=== PATIENT | female | born 1950 | race Caucasian/White ===

== ENCOUNTER 2017-04-12 07:32 | Emergency (ER) | payer OTHER ==
[~2017-04-12] VITALS: Ht 160 cm; Wt 77.1 kg
--- NOTE | 2017-04-12 07:52 | ED GENERAL ADULT ---
History of Present Illness General Chief Complaint: General Adult Stated Complaint: SUDDEN ONSET WEAKNESS, +N, DIAPHORESIS Source: patient, family Exam Limitations: no limitations Vital Signs & Intake/Output Vital Signs & Intake/Output Vital Signs Date Time Temp Pulse Resp B/P B/P Pulse O2 O2 Flow FiO2 Mean Ox Delivery Rate 04/12 1020 98.0 74 20 180/90 100 Room Air 04/12 0912 97.0 70 178/86 04/12 0807 178/88 04/12 0806 179/86 04/12 0806 181/86 04/12 0805 97 04/12 0735 96.8 76 18 163/91 97 Room Air Room Air Allergies Coded Allergies: No Known Allergies (04/12/17) Reconcile Medications No Known Home Medications Triage Note: PT TO ED WITH SUDDEN ONSET OF DIZZINESS AND NAUSEA, "I ATE BREAKFAST OK THIS MORNING, I WENT UPSTAIRS TO GET WASHED UP AND I BROKE OUT IN A COLD SWEAT". + NAUSEA -V/D Triage Nurses Notes Reviewed? yes Onset: Abrupt Duration: hour(s): (1) Timing: single episode today Injury Environment: home Severity: moderate, severe No Modifying Factors: none Associated Symptoms: diaphoresis, NAUSEA, LIGHTHEADEDNESS HPI: This is a very taniya 66-year-old female without any known past medical history, does not see a primary care doctor presents to the ER for chief complaint of episode of nausea, cold sweats and feeling like she was in the past out this morning. She states she had breakfast around 5:30 O Coffee which she made at home. She then climbed up the stairs to wash her face when all of the symptoms started. She felt like vomiting but did not vomit but felt she was when pass out. No chest pain or shortness of breath. She was fatigued all day long yesterday. She states that since the of her daughter 8 months ago for breast cancer she has only been sleeping 3-4 hours tonight. Past History Travel History Traveled to [place] past 21 day No Medical History Any Pertinent Medical History? see below for history Neurological: migraine EENT: NONE Cardiovascular: NONE Respiratory: NONE Gastrointestinal: NONE Hepatic: NONE Renal: NONE Musculoskeletal: NONE Psychiatric: NONE Endocrine: NONE Blood Disorders: anemia Cancer(s): NONE OPTICAL ENGINEER/Reproductive: NONE Surgical History Surgical History: hysterectomy Psychosocial History What is your primary language Divehi Tobacco Use: Never used ETOH Use: occasional use Illicit Drug Use: denies illicit drug use Family History Comment: FATHER 80'S, - [place], [place], CVA DAUGHTER - BREAST CA (40) Hx Contributory? Yes Review of Systems Review of Systems Constitutional: Reports: diaphoresis, malaise, weakness. Denies: chills, fever. EENTM: Reports: no symptoms. Respiratory: Denies: cough, short of breath. Cardiovascular: Denies: chest pain, palpitations. GI: Reports: nausea. Denies: abdominal pain, vomiting. Genitourinary: Denies: discharge, dysuria, frequency. Musculoskeletal: Denies: back pain. Skin: Reports: no symptoms. Neurological/Psychological: Reports: depressed ( OF DAUGHTER). Hematologic/Endocrine: Denies: bruising, bleeding, polyuria, polydipsia. Immunologic/Allergic: Denies: splenectomy. All Other Systems: Reviewed and Negative Physical Exam Physical Exam General Appearance: well developed/nourished, alert, awake, mild distress Head: atraumatic, normal appearance Eyes: Bilateral: normal appearance, PERRL, EOMI. Ears, Nose, Throat: normal pharynx, normal ENT inspection, hearing grossly normal Neck: normal inspection, supple, full range of motion Respiratory: normal breath sounds, chest non-tender, quiet respiration Cardiovascular: regular rate/rhythm Peripheral Pulses: 2+ radial (R), 2+ radial (L) Gastrointestinal: non-tender Extremities: normal inspection, normal capillary refill, normal range of motion, no edema Neurologic/Psych: no motor/sensory deficits, awake, alert, oriented x 3, normal mood/affect Skin: CLAMMY Core Measures ACS in differential dx? Yes CVA/TIA Diagnosis: No Severe Sepsis Present: No Septic Shock Present: No Progress Differential Diagnoses I considered the following diagnoses in my evaluation of the patient: [ACS, EXHAUSTION, DEHYDRATION, PE, DYSRHYTHMIA, VERGITO, VAGAL EPISODE, ANXIETY] Plan of Care: Orders Procedure Date/time Status MISTAKE 04/12 753 Active Telemetry/Compressed Gas Equipment Mechanic 04/12 753 Active URINALYSIS 04/12 753 Complete THYROID STIMULATING HORMONE 04/12 753 Complete TROPONIN LEVEL 04/12 753 Complete FREE T4 04/12 753 Complete COMPREHENSIVE METABOLIC PANEL 04/12 753 Complete CBC WITHOUT DIFFERENTIAL 04/12 753 Complete EKG 04/12 0739 Active Laboratory Tests 04/12/17 1034: Urine Color STRAW, Urine Clarity CLEAR, Urine pH 7.0, Ur Specific [place] 1.015, Urine Protein NEG, Urine Ketones NEG, Urine Nitrite NEG, Urine Bilirubin NEG, Urine Urobilinogen 0.2, Ur Leukocyte Esterase TRACE H, Ur Microscopic SEDIMENT EXAMINED, Urine RBC 1-3, Urine WBC 1-3 H, Ur Epithelial Cells MOD H, Urine Bacteria RARE H, Urine Mucus FEW, Urine Hemoglobin NEG, Urine Glucose NEG 04/12/17 0800: Anion Gap 8, Estimated GFR > 60, BUN/Creatinine Ratio 33.3 H, Glucose 158 H, Calcium 9.4, Total Bilirubin 0.6, AST 19, ALT 16, Alkaline Phosphatase 63, Troponin I < 0.01, Total Protein 7.1, Albumin 4.2, Globulin 2.9, Albumin/ Globulin Ratio 1.4, TSH 4.800 H, Free T4 1.05, CBC w Diff NO MAN DIFF REQ, RBC 4.40, MCV 86.8, MCH 29.4, RDW 13.4, MPV 7.9, Gran % 67.7, Lymphocytes % 22.5, Monocytes % 6.1, Eosinophils % 3.2, Basophils % 0.5, Absolute Granulocytes 3.8, Absolute Lymphocytes 1.3, Absolute Monocytes 0.3, Absolute Eosinophils 0.2, Absolute Basophils 0, PUBS MCHC 33.8 04/12/2017 11:21:15 AM Much better after IV fluids. An laboratory around the ED without any distress, no more episodes of dizziness. Urinalysis is negative for infection. Patient encouraged to follow up with a primary care doctor in the office. Patient admitted to being very exhausted secondary to only sleeping approximately 3 hours per night since the of her 40-year-old daughter 8 months ago. She is exhausted which may be playing a role in her current symptoms. (BRANDY ARORA,ERICKSON) Diagnostic Imaging: Viewed by Me: Radiology Read. Discussed w/RAD: Radiology Read. CXR Impression: PATIENT: FERMIN RODRIGUEZ PRESENT AGE: 66 PATIENT ACCOUNT NO: [id number] : 50 LOCATION: [facility] ORDERING PHYSICIAN: ERICKSON NAVA MD SERVICE DATE: 04/12/17 EXAM TYPE: RAD - XRY-CHEST XRAY , PA AND LATERAL EXAMINATION: XR CHEST CLINICAL INFORMATION: Syncope diaphoresis COMPARISON: None TECHNIQUE: 2 views of the chest were obtained. FINDINGS: Heart size is top normal. Pulmonary vascularity is within normal limits. The aorta is mildly tortuous. The lungs are normally expanded and clear. There is no pulmonary edema. There is no focal consolidation or atelectasis. There is no pleural effusion or pneumothorax. There is hypertrophic spurring in the dorsal spine. IMPRESSION: Normally expanded and clear lungs with no focal findings. DICTATED BY: SETH HERNDON MD DATE/TIME DICTATED:04/12/17850 POINT OF SALE ASSOCIATE:APOLINAR DATE/TIME TRANSCRIBED:04/12/17850 CONFIDENTIAL, DO NOT COPY WITHOUT APPROPRIATE AUTHORIZATION. <Electronically signed in Other Vendor System> SIGNED BY: SETH HERNDON MD 04/12/17 0857 Initial ED EKG: normal axis, none, normal intervals Departure Departure Time of Disposition: 1102 Disposition: HOME OR SELF CARE Condition: Stable Clinical Impression Primary Impression: Near syncope Referrals: JULIET ARORA,SOILA PEREZ MD,STU Nicole Additional Instructions: FOLLOW UP WITH YOUR HUSBAN'D DOCTOR OR WITH THE ONE LISTED Departure Forms: Customer Survey General Discharge Information Prescriptions: Current Visit Scripts No Known Home Medications Critical Care Note Critical Care Note Critical Care Time: non-applicable
[2017-04-12 08:11] LABS: ABSOLUTE BASOPHIL COUNT 0 /CUMM (0.0-0.2); ABSOLUTE EOSINOPHIL COUNT 0.2 /CUMM (0.0-0.7); ABSOLUTE GRANULOCYTE CT 3.8 /CUMM (1.4-6.5); ABSOLUTE LYMPH COUNT 1.3 /CUMM (1.2-3.4); ABSOLUTE MONOCYTE COUNT 0.3 /CUMM (0.10-0.60); BASOPHIL % 0.5 % (0.0-2.0); EOSINOPHIL % 3.2 % (0-5); GRANULOCYTE % 67.7 % (42.2-75.2); HEMATOCRIT 38.2 % (37-47); MEAN CORPUSCULAR HGB 29.4 PG (27.0-31.0); MEAN CORPUSCULAR HGB CONC 33.8 G/DL (33.0-37.0); MEAN CORPUSCULAR VOLUME 86.8 FL (81.0-99.0); MEAN PLATELET VOLUME 7.9 FL (7.4-10.4); PLATELET COUNT 284 /CUMM (130-400); RBC DISTRIBUTION WIDTH 13.4 % (11.5-14.5); WHITE BLOOD CELL COUNT 5.6 /CUMM (4.8-10.8)
--- NOTE | 2017-04-12 08:57 | RADIOLOGY REPORT ---
EXAMINATION: XR CHEST CLINICAL INFORMATION: Syncope diaphoresis COMPARISON: None TECHNIQUE: 2 views of the chest were obtained. FINDINGS: Heart size is top normal. Pulmonary vascularity is within normal limits. The aorta is mildly tortuous. The lungs are normally expanded and clear. There is no pulmonary edema. There is no focal consolidation or atelectasis. There is no pleural effusion or pneumothorax. There is hypertrophic spurring in the dorsal spine. IMPRESSION: Normally expanded and clear lungs with no focal findings.
[2017-04-12 10:20] VITALS: BP 180/90
== END 2017-04-12 11:22 ==
LOC: ERH 07:32
PROVIDERS: Emergency Medicine
DX: R55 Syncope and collapse (principal)
CPT/HCPCS: 81001; 93005; 93010